=== PATIENT | female | born 1990 | race Caucasian/White ===

== ENCOUNTER 2021-12-18 10:12 | Day surgery (SDC) | payer OTHER ==
[~2021-12-18 10:12] MED LIST: Albuterol 0.083% 2.5 MG/3 ML Neb Soln NEB PRN; HYDROmorphone 1 MG/ML Syringe IVPUSH PRN; Lactated Ringers 1,000 ML IV SCH; Metoclopramide 10 MG/2 ML SDV IVPUSH PRN; Morphine 4 MG/ML VIAL IVPUSH PRN; Naloxone 0.4 MG/ML SDV IVPUSH PRN; Ondansetron 4 MG/2 ML SDV IVPUSH PRN; fentaNYL 100 MCG/2 ML SDV IVPUSH PRN
[2021-12-18] MEDS ORDERED: Ketorolac 30 MG/ML SDV ONE (11:09)
[2021-12-18] MEDS ORDERED: Propofol 200 MG/20 ML SDV ONE (11:09)
[2021-12-18] MEDS ORDERED: Ondansetron 4 MG/2 ML SDV ONE (11:09)
[2021-12-18] MEDS ORDERED: fentaNYL 100 MCG/2 ML SDV ONE (11:09)
[2021-12-18] MEDS ORDERED: Dexamethasone 4 MG/ML 5 ML MDV ONE (11:09)
[2021-12-18] MEDS ORDERED: Lidocaine 2% 5 ML SDV ONE (11:09)
[2021-12-18] MEDS ORDERED: Midazolam 1 MG/ML 2 ML SDV ONE (11:09)
[2021-12-18] MEDS ORDERED: Ferric Subsulfate Topical Soln 8 GM (8 ML) Bottle ONE (11:58)
[2021-12-18] MEDS ORDERED: Iodine/Potassium Iodide 5% Solution 14 ML Bottle ONE (11:58)
[2021-12-18] MEDS ORDERED: Lidocaine 1% 20 ML MDV ONE (12:03)
[2021-12-18 12:05] LABS: BLOOD UREA NITROGEN,BUN 10 mg/dL (7.0-18.0); CHLORIDE,CL 106 mmol/L (98-107); GLUCOSE RANDOM 87 mg/dL (74-106); POTASSIUM,K 3.7 mmol/L (3.5-5.1); SODIUM,NA 141 mmol/L (136-145)
[2021-12-18] MEDS ORDERED: Acetaminophen/HYDROcodone 325-5 MG Tab PO PRN (13:02)
== END 2021-12-18 14:30 | disposition home or self-care (01) ==
LOC: MW.SDS 10:12
PROVIDERS: ATTEND Obstetrics & Gynecology
DX: D06.9 Carcinoma in situ of cervix, unspecified (principal)
CPT/HCPCS: 36415; 57460; 80053; 81025; 85027; 86850; 86900; 86901; A9270; J1100; J1885; J2250; J2405; J2704; J3010; J7120; 00940